=== PATIENT | male | born 2000 | race Caucasian/White ===

== ENCOUNTER 2023-11-17 20:33 | Emergency (ER) | payer BC ==
[2023-11-17] MEDS: Sodium Chloride 0.9% 1,000 ML IV ONE (21:12)
[2023-11-17] MEDS: Ondansetron 4 MG/2 ML SDV IVPUSH ONE (21:13)
[2023-11-17] MEDS: Ketorolac 30 MG/ML SDV IVPUSH ONE (21:13)
== END 2023-11-17 21:54 | disposition home or self-care (01) ==
LOC: MW.ED 20:33
DX: S09.90XA Unspecified injury of head, initial encounter (principal); Z75.8 Other problems related to medical facilities and other health care; V18.0XXA Pedal cycle driver injured in noncollision transport accident in nontraffic accident, initial encounter
CPT/HCPCS: 70450; 96361; 96374; 96375; 99283; J1885; J2405; J7030; 99284